=== PATIENT | female | born 1985 | race Caucasian/White ===

== ENCOUNTER 2017-01-06 02:06 | Emergency (ER) | payer MEDICARE, MEDICAID ==
[2017-01-06 02:18] VITALS: BP 112/88
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
== END 2017-01-06 04:32 | disposition home or self-care (01) ==
LOC: VM.ED 02:06
DX: S09.90XA Unspecified injury of head, initial encounter (principal); Z79.01 Long term (current) use of anticoagulants; Z88.1 Allergy status to other antibiotic agents; W50.0XXA Accidental hit or strike by another person, initial encounter
CPT/HCPCS: 70450; 99282-GF; 99285

== ENCOUNTER 2019-10-26 16:00 | Emergency (ER) | payer OTHER ==
[2019-10-26 16:44] LABS: CHLORIDE,CL 102 mmol/L (98-107); SODIUM,NA 139 mmol/L (136-145)
[2019-10-26 16:47] LABS: ANION GAP 15.1 mmol/L (10-20)
--- NOTE | 2019-10-26 16:55 | CT ---
[id number] CT/CT Head Stroke Protocol Exam: CT Head Stroke Protocol Clinical Data: NEUROLOGIC DEFICIT COMPARISON: CORRELATION IS MADE WITH THE EXAM OF JANUARY 06, 2017 FINDINGS: There is no mass or mass effect There is no hemorrhage or hydrocephalus There are no extra-axial fluid collections There are no sites of abnormal attenuation. There is no hyperdense middle cerebral artery sign IMPRESSION: NO PLAIN CT EVIDENCE OF ACUTE INTRACRANIAL PROCESS Ken Solomon MD 10/26/19 [id number] Thank you for allowing us to participate in the care of your patient.
--- NOTE | 2019-10-26 17:26 | EDM.PDOC ---
ED HPI GENERAL MEDICAL PROBLEM - General Time Seen by Provider: 10/26/19 16:00 Source of Information: Reports: Patient History Limitations: Reports: Altered Mental Status - History of Present Illness INITIAL COMMENTS - FREE TEXT/NARRATIVE: Pt presents to ER with speech difficulties Episode lasted 5 minutes Upon arrival in ER, pt back at baseline No HENDRIX, No chest pain, No trauma Was seen in clinic this AM for different issue and was normal then Last normal well time was 1530 No previous CVA or TIA Has cervical fusion last week and is in hard collar Also weaned off Neurontin over past 4 days Onset: Sudden Onset Date: 10/26/19 Onset Time: 15:30 Duration: Minutes: Location: Reports: Other (Speech) Associated Symptoms: Reports: No Other Symptoms - Related Data Allergies Allergy/AdvReac Type Severity Reaction Status Date / Time amoxicillin [Amoxicillin] Allergy Rash Verified 01/06/17 02:10 promethazine HCl Allergy Anxiety Verified 01/06/17 02:10 [From Phenergan] Home Meds: Home Meds Furosemide [Lasix] 20 mg PO DAILY 05/09/14 [History] Warfarin [Coumadin] 7.5 mg PO DAILY 05/09/14 [History] carvediloL [Coreg] 12.5 mg PO BID 05/09/14 [History] Past Medical History Psychiatric History: Reports: Depression - Past Surgical History Cardiovascular Surgical History: Reports: Other (See Below) Social & Family History - Living Situation & Occupation Living situation: Reports: Single, with Family ED ROS GENERAL - Review of Systems Review Of Systems: See Below Constitutional: Reports: No Symptoms HEENT: Reports: No Symptoms Respiratory: Reports: No Symptoms Cardiovascular: Reports: No Symptoms GI/Abdominal: Reports: No Symptoms Musculoskeletal: Reports: Other (Cervical fusion) Neurological: Reports: Trouble Speaking, Change in Speech - Physical Exam Exam: See Below Exam Limited By: No Limitations General Appearance: Alert, No Apparent Distress Eye Exam: Bilateral Eye: EOMI, PERRL Throat/Mouth: Normal Oropharynx Neck: Other (Anterior incision) Respiratory/Chest: Lungs Clear Cardiovascular: Regular Rate, Rhythm GI/Abdominal: Soft Neuro Exam (Abbreviated): Alert, Oriented, No Motor/Sensory Deficits Extremities: Normal Inspection Psychiatric: Normal Affect Course - Orders/Labs/Meds Labs: Laboratory Tests 10/26/19 10/26/19 10/26/19 Range/Units 16:17 16:20 16:20 WBC 11.1 H (4.0-10.0) x10^3/uL RBC 4.10 (4.00-5.50) x10^6/uL Hgb 13.8 (12.0-16.0) g/dL Hct 40.4 (33.0-47.0) % MCV 98.5 H (78.0-93.0) fL MCH 33.7 H (26.0-32.0) pg MCHC 34.2 (32.0-36.0) g/dL RDW Coeff of Michelle 11.0 (10.0-15.0) % Plt Count 194 (130-400) x10^3/uL Neut % (Auto) 66.0 (50.0-80.0) % Lymph % (Auto) 21.6 L (25.0-50.0) % Banner % (Auto) 10.3 (2.0-11.0) % Eos % (Auto) 1.9 (0.0-4.0) % Baso % (Auto) 0.2 (0.2-1.2) % PT (10.0-12.8) SEC INR (2.0-3.5) APTT (24.0-36.0) SEC Sodium 139 (136-145) mmol/L Potassium 4.1 (3.5-5.1) mmol/L Chloride 102 (98-107) mmol/L Carbon Dioxide 26 (21-32) mmol/L Anion Gap 15.1 (10-20) mmol/L BUN 11 (7-18) mg/dL Creatinine 0.7 (0.55-1.02) mg/dL Est Cr Clr Drug Dosing TNP Estimated GFR (MDRD) > 60 Glucose 99 (74-106) mg/dL POC Glucose 101 (74-106) mg/dL Calcium 8.9 (8.5-10.1) mg/dL POC Troponin I (0.00-0.08) ng/mL 10/26/19 10/26/19 Range/Units 16:20 16:26 WBC (4.0-10.0) x10^3/uL RBC (4.00-5.50) x10^6/uL Hgb (12.0-16.0) g/dL Hct (33.0-47.0) % MCV (78.0-93.0) fL MCH (26.0-32.0) pg MCHC (32.0-36.0) g/dL RDW Coeff of Michelle (10.0-15.0) % Plt Count (130-400) x10^3/uL Neut % (Auto) (50.0-80.0) % Lymph % (Auto) (25.0-50.0) % Banner % (Auto) (2.0-11.0) % Eos % (Auto) (0.0-4.0) % Baso % (Auto) (0.2-1.2) % PT 47.3 H (10.0-12.8) SEC INR 4.2 H (2.0-3.5) APTT 42.9 H (24.0-36.0) SEC Sodium (136-145) mmol/L Potassium (3.5-5.1) mmol/L Chloride (98-107) mmol/L Carbon Dioxide (21-32) mmol/L Anion Gap (10-20) mmol/L BUN (7-18) mg/dL Creatinine (0.55-1.02) mg/dL Est Cr Clr Drug Dosing Estimated GFR (MDRD) Glucose (74-106) mg/dL POC Glucose (74-106) mg/dL Calcium (8.5-10.1) mg/dL POC Troponin I 0.00 (0.00-0.08) ng/mL - Re-Assessments/Exams Free Text/Narrative Re-Assessment/Exam: 10/26/19 17:28 Pt had another episode of speech difficulty while in ER Lasted 5 minutes and now at baseline See lab and CT report D/W Dr Mcarthur Stroke Neurology [facility] Dr Tate will be accepting hospitalist Departure - Departure Time of Disposition: 17:30 Disposition: DC/Tfer to Acute Hospital 02 Clinical Impression: TIA (transient ischemic attack) - Discharge Information Referrals: PCP,None [Primary Care Provider] - Forms: Interfacility Transfer EMTALA
== END 2019-10-26 17:50 | disposition short-term general hospital (02) ==
LOC: VM.ED 16:00
DX: G45.9 Transient cerebral ischemic attack, unspecified (principal); Z88.1 Allergy status to other antibiotic agents; Z88.8 Allergy status to other drugs, medicaments and biological substances; Z79.01 Long term (current) use of anticoagulants; Z79.899 Other long term (current) drug therapy
CPT/HCPCS: 70450; 80048; 82962; 84484; 85025; 85610; 85730; 93005; 99285-25